=== PATIENT | male | born 1950 | race Caucasian/White ===

== ENCOUNTER 2017-06-07 11:05 | Inpatient (IN) | payer MEDICARE, MEDICAID ==
--- NOTE | 2017-06-07 11:33 | ED Physician Chart ---
ED Chief Complaint/HPI - Patient Information Date Seen:: 06/07/17 Time Seen:: 11:20 Chief Complaint:: Poor Oral Intake History of Present Illness:: onset x 2 days of poor oral intake and failure to thrive; no report of LOC, ALOC , AMS, trauma, H/As, S/T, neck pain, C/P, SOB, Abd. Pain, A/N/V/D/C, fever, chills, or urinary s/s Allergies:: Allergies Allergy/AdvReac Type Severity Reaction Status Date / Time No Known Allergies Allergy Verified 06/07/17 11:16 Vitals:: Vital Signs - 8 hr 06/07/17 11:21 Temp 98.8 F HR 98 RR 18 BP 120/51 O2 Sat % 96 Historian:: Patient, Family Member Review:: Nurse's Note Reviewed ED Review of Systems - Review of Systems General/Constitutional: No fever, No chills, No weight loss, No weakness, No diaphoresis, No edema, No loss of appetite Skin: No skin lesions, No rash, No bruising Head: No headache, No light-headedness Eyes: No loss of vision, No pain, No diplopia ENT: No earache, No nasal drainage, No sore throat, No tinnitus Neck: No neck pain, No swelling, No thyromegaly, No stiffness, No mass noted Cardio Vascular: No chest pain, No palpitations, No PND, No orthopnea, No edema Pulmonary: No SOB, No cough, No sputum, No wheezing GI: No nausea, No vomiting, No diarrhea, No pain, No melena, No hematochezia, No constipation, No hematemesis G/U: No dysuria, No frequency, No hematuria, No nacturia Musculoskeletal: No bone or joint pain, No back pain, No muscle pain Endocrine: No polyuria, No polydipsia Psychiatric: No prior psych history, No depression, No anxiety, No suicidal ideation, No homicidal ideation, No auditory hallucination, No visual hallucination Hematopoietic: No bruising, No lymphadenopathy Allergic/Immuno: No urticaria, No angioedema Neurological: No syncope, No focal symptoms, No weakness, No paresthesia, No headache, No seizure, No dizziness, No confusion, No vertigo ED Past Medical History - Past Medical History Obtainable: Yes Past Medical History: HTN Family History: HTN Social History: Non Smoker, No Alcohol, No Drug Use, , Care Facility Surgical History: None Psychiatricy History: None Medication: Reviewed Family Medical History - Family Member Mother History Unknown: Yes ED Physical Exam - Physical Examination General/Constitutional: Awake, Well-developed, well-nourished, Alert, No distress, GCS 15, Non-toxic appearing, Ambulatory Head: Atraumatic Eyes: Lids, conjuctiva normal, PERRL, EOMI Skin: Nl inspection, No rash, No skin lesions, No ecchymosis, Well hydrated, No lymphadenopathy ENMT: External ears, nose nl, TM canals nl, Nasal exam nl, Lips, teeth, gums nl , Oropharynx nl, Tonsils nl Neck: Nontender, Full ROM w/o pain, No JVD, No nuchal rigidity, No bruit, No mass, No stridor Respiratory: Nl effort/Exclusion, Clear to Auscultation, No Wheeze/Rhonchi/Rales Cardio Vascular: RRR, No murmur, gallop, rubs, NL S1 S2, Carotid/Femoral/Distal pulses equal bilaterally GI: No tenderness/rebounding/guarding, No organomegaly, No hernia, Normal BS's, Nondistended, No mass/bruits, No McBurney tenderness : No CVA tenderness Extremities: No tenderness or effusion, Full ROM, normal strength in all extremities, No edema, Normal digits & nails Neuro/Psych: Alert/oriented, DTR's symmetric, Normal sensory exam, Normal motor strength, Judgement/insight normal, Mood normal, Normal gait, No focal deficits Misc: Normal back, No paraspinal tenderness ED Labs/Radiology/EKG Results - Lab Results Comments:: unremarkable - Radiology Results Comments:: NAD - EKG Interpretations EKG Time:: 12:00 Rate & Rhythm: 82; NSR Comments:: non-specific st-t changes ED Septic Shock - . Is Septic Shock (SBP<90, OR Lactate>4 mmol\L) present?: No - <6hrs of presentation: Vital Signs: Vital Signs - 8 hr 06/07/17 11:21 Temp 98.8 F HR 98 RR 18 BP 120/51 O2 Sat % 96 ED Reassessment (Disposition) - Reassessment Reassessment Condition:: Improved - Diagnosis Diagnosis:: Dehydration; Poor Oral Intake; Failure to Thrive - Aftercare/Follow up Instructions Aftercare/Follow-Up Instructions:: Counseled pt regarding lab results/diagnosis & need follow up, Counseled pt & family regarding lab results/diagnosis & need follow up - Patient Disposition Discharge/Transfer:: Acute Care w/in this hosp Accepting Physician:: Dr. Walters Time Called:: 1300 Time Responded:: 13:00 Admitted to:: Med/Surg Spoke to:: Dr. Walters Admitting Medical Physician:: Dr. Walters Condition at Disposition:: Stable, Improved
[2017-06-07 11:54] LABS: % EOSINOPHILS 0.7 % (0.0-5.0); % LYMPHOCYTES 5.4 % (20.0-50.0); % MONOCYTES 5.6 % (2.0-10.0); % NEUTROPHILS 88.3 % (40.0-80.0); HEMATOCRIT 39.9 % (41.0-60); HEMOGLOBIN 13.5 gm/dL (12-16); LYMPHOCYTE ABSOLUTE 0.3 Th/cmm (1.5-3.0); MEAN CORPUSCULAR HEMOGLOBIN 30.7 pg (27.0-31.0); MEAN CORPUSCULAR HGB CONC 33.8 pg (28.0-36.0); MEAN PLATELET VOLUME 8.2 fl; MONOCYTE ABSOLUTE 0.3 Th/cmm (0.3-1.0); NEUTROPHILE ABSOLUTE 4.1 Th/cmm (1.8-8.0); PLATELET COUNT 208 Th/cmm (150-400); RED BLOOD COUNT 4.38 Mil/cmm (3.80-5.80); RED CELL DISTRIBUTION WIDTH 12.4 % (11.5-20.0); WHITE BLOOD COUNT 4.7 Th/cmm (4.8-10.8)
[2017-06-07 12:10] LABS: PROTHROMBIN TIME (TEST) 10.4 SECONDS (9.5-11.5)
[2017-06-07 12:14] LABS: ALB/GLOB RATIO 1.6 (1.0-1.8); ALBUMIN 4.1 gm/dL (4.2-5.5); ALKALINE PHOSPHATASE 63 U/L (34-104); ANION GAP 11.1 (7.0-16.0); BILIRUBIN,TOTAL 0.4 mg/dL (0.3-1.0); BUN - UREA NITROGEN 24 mg/dL (7-25); CALCIUM SERUM 9.3 mg/dL (8.6-10.3); CARBON DIOXIDE 27.6 mEq/L (21.0-31.0); CHLORIDE 99 mEq/L (98-107); CREATININE KINASE 209 U/L (30-223); GFR AFRICAN-AMERICAN > 60.0 ml/min (>90); GFR NON AFRICAN-AMERICAN > 60.0 ml/min; GLUCOSE 168 mg/dL (70-105); POTASSIUM SERUM 3.7 mEq/L (3.5-5.1); SGOT 17 U/L (13-39); SGPT/ALT 3 U/L (7-52); SODIUM SERUM 134 mEq/L (136-145); TOTAL PROTEIN,SERUM 6.7 gm/dL (6.0-8.3)
[2017-06-07 12:17] LABS: TROP I < 0.01 ng/mL (0.01-0.05)
--- NOTE | 2017-06-07 12:33 | Diagnostic Imaging Report ---
CHEST X-RAY: AP view INDICATION: pain COMPARISON: None FINDINGS: Chronic lung changes are noted. There is no focal consolidation or pleural effusions the heart size at the upper limits of normal. Atherosclerosis is noted. There is a 3 mm calcified granuloma of the left upper lung zone. Degenerative changes of the spine are noted. IMPRESSION: Chronic lung changes with no focal consolidation identified. 3 mm calcified granuloma of the left upper lung zone. Atherosclerotic vascular disease.
[2017-06-07 14:23] LABS: URINE MICROSCOPIC INDICATED? YES; URINE SOURCE MIDSTREAM
[2017-06-07 14:31] LABS: URINE BILIRUBIN NEGATIVE (NEGATIVE); URINE BLOOD NEGATIVE (NEGATIVE); URINE GLUCOSE (UA) NEGATIVE (NEGATIVE); URINE KETONE NEGATIVE (NEGATIVE); URINE LEUKOCYTE ESTERASE NEGATIVE (NEGATIVE); URINE NITRATE NEGATIVE (NEGATIVE); URINE PROTEIN NEGATIVE (NEGATIVE)
[2017-06-07 14:34] LABS: URINE CLARITY CLEAR (CLEAR); URINE COLOR YELLOW
[2017-06-07 14:51] LABS: URINE BACTERIA NONE SEEN /hpf (NONE SEEN); URINE EPITHELIAL CELLS NONE SEEN /lpf (FEW); URINE RBC NONE SEEN /hpf (0-5); URINE WBC NONE SEEN /hpf (0-5)
[2017-06-07] MEDS ORDERED: Pneumococcal Vaccine 0.5 mL Vial IM ONE (16:55)
--- NOTE | 2017-06-07 19:06 | History & Physical ---
ADMIT DATE: 06/07/2017 The patient has a history of Parkinson disease, history of benign enlargement of the prostate and history of coronary artery disease. [facility]# [id number]
--- NOTE | 2017-06-07 19:15 | History & Physical ---
ADMIT DATE: 06/07/2017 This patient is an elderly patient, 66-year-old has been having low appetite, not eating, losing weight and very dehydrated in the last several days, came to the ER and was worked up and found to have acute dehydration, acute prerenal azotemia and complaining of shortness of breath, abdominal pain and neck pain and the patient was admitted. PAST MEDICAL HISTORY: History of hypertension. No history of alcohol. REVIEW OF SYSTEMS: Except not eating, everything else was negative. PHYSICAL EXAMINATION: GENERAL: The patient is awake, alert, looks dehydrated. HEAD: Normal. ENT: Normal. NECK: Supple, nontender. LUNGS: Clear. CARDIOVASCULAR SYSTEM: S1, S2 heard. ABDOMEN: Soft. Bowel sounds are heard. LABORATORY DATA: Showed some marked dehydration, high BUN, indicating acute kidney injury, acute renal failure, dehydration, poor oral intake, failure to thrive, history of hypertension. The patient is going to be admitted. I will go ahead and hydrate him and also I will work him up for sepsis and I will follow up, give him physical therapy and evaluate for rehabilitation therapy in detention. JOB# [id number]
[2017-06-07] MEDS: D5-0.45NS 1,000 ML IV SCH (21:30)
[2017-06-08] MEDS: Aspirin 81mg Chewable Tab PO SCH (08:22)
[2017-06-08] MEDS: D5-0.45NS 1,000 ML IV SCH (10:47)
--- NOTE | 2017-06-08 13:30 | Internal Medicine Prog Note ---
Internal Medicine Subjective - Subjective Service Date: 06/08/17 Patient seen and examined:: with staff Patient is:: awake Per staff patient has:: tolerating meds Internal Medicine Objective - Results Result Diagrams: 06/07/17 11:40 06/07/17 11:40 Recent Labs: Laboratory Last Values WBC 4.7 Th/cmm (4.8-10.8) L 06/07/17 11:40 RBC 4.38 Mil/cmm (3.80-5.80) 06/07/17 11:40 Hgb 13.5 gm/dL (12-16) 06/07/17 11:40 Hct 39.9 % (41.0-60) L 06/07/17 11:40 MCV 91.0 fl (80-99) 06/07/17 11:40 MCH 30.7 pg (27.0-31.0) 06/07/17 11:40 MCHC Differential 33.8 pg (28.0-36.0) 06/07/17 11:40 RDW 12.4 % (11.5-20.0) 06/07/17 11:40 Plt Count 208 Th/cmm (150-400) 06/07/17 11:40 MPV 8.2 fl 06/07/17 11:40 Neutrophils % 88.3 % (40.0-80.0) H 06/07/17 11:40 Lymphocytes % 5.4 % (20.0-50.0) L 06/07/17 11:40 Monocytes % 5.6 % (2.0-10.0) 06/07/17 11:40 Eosinophils % 0.7 % (0.0-5.0) 06/07/17 11:40 Basophils % 0.0 % (0.0-2.0) 06/07/17 11:40 PT 10.4 SECONDS (9.5-11.5) 06/07/17 11:40 INR 1.00 (0.5-1.4) 06/07/17 11:40 PTT (Actin FS) 21.0 SECONDS (26.0-38.0) L 06/07/17 11:40 Sodium 134 mEq/L (136-145) L 06/07/17 11:40 Potassium 3.7 mEq/L (3.5-5.1) 06/07/17 11:40 Chloride 99 mEq/L (98-107) 06/07/17 11:40 Carbon Dioxide 27.6 mEq/L (21.0-31.0) 06/07/17 11:40 Anion Gap 11.1 (7.0-16.0) 06/07/17 11:40 BUN 24 mg/dL (7-25) 06/07/17 11:40 Creatinine 1.0 mg/dL (0.7-1.3) 06/07/17 11:40 Est GFR ( Amer) > 60.0 ml/min (>90) 06/07/17 11:40 Est GFR (Non-Af Amer) > 60.0 ml/min 06/07/17 11:40 BUN/Creatinine Ratio 24.0 06/07/17 11:40 Glucose 168 mg/dL (70-105) H 06/07/17 11:40 POC Glucose 101 MG/DL (70 - 105) 06/07/17 16:06 Whole Bld Lactic Acid 1.68 mmol/L (0.60-1.99) 06/07/17 11:40 Calcium 9.3 mg/dL (8.6-10.3) 06/07/17 11:40 Total Bilirubin 0.4 mg/dL (0.3-1.0) 06/07/17 11:40 AST 17 U/L (13-39) 06/07/17 11:40 ALT 3 U/L (7-52) L 06/07/17 11:40 Alkaline Phosphatase 63 U/L (34-104) 06/07/17 11:40 Creatine Kinase 209 U/L (30-223) 06/07/17 11:40 Troponin I < 0.01 ng/mL (0.01-0.05) L 06/07/17 11:40 Total Protein 6.7 gm/dL (6.0-8.3) 06/07/17 11:40 Albumin 4.1 gm/dL (4.2-5.5) L 06/07/17 11:40 Globulin 2.6 gm/dL 06/07/17 11:40 Albumin/Globulin Ratio 1.6 (1.0-1.8) 06/07/17 11:40 Urine Source MIDSTREAM 06/07/17 14:15 Urine Color YELLOW 06/07/17 14:15 Urine Clarity CLEAR (CLEAR) 06/07/17 14:15 Urine pH 6.0 (4.6 - 8.0) 06/07/17 14:15 Ur Specific [place] 1.015 (1.005-1.030) 06/07/17 14:15 Urine Protein NEGATIVE mg/dL (NEGATIVE) 06/07/17 14:15 Urine Glucose (UA) NEGATIVE mg/dL (NEGATIVE) 06/07/17 14:15 Urine Ketones NEGATIVE mg/dL (NEGATIVE) 06/07/17 14:15 Urine Blood NEGATIVE (NEGATIVE) 06/07/17 14:15 Urine Nitrate NEGATIVE (NEGATIVE) 06/07/17 14:15 Urine Bilirubin NEGATIVE (NEGATIVE) 06/07/17 14:15 Urine Urobilinogen 1.0 E.U./dL (0.2 - 1.0) 06/07/17 14:15 Ur Leukocyte Esterase NEGATIVE (NEGATIVE) 06/07/17 14:15 Urine RBC NONE SEEN /hpf (0-5) 06/07/17 14:15 Urine WBC NONE SEEN /hpf (0-5) 06/07/17 14:15 Ur Epithelial Cells NONE SEEN /lpf (FEW) 06/07/17 14:15 Urine Bacteria NONE SEEN /hpf (NONE SEEN) 06/07/17 14:15 - Physical Exam Vitals and I&O: Vital Signs Temp 97.6 F 06/08/17 11:58 Pulse 82 06/08/17 11:58 Resp 18 06/08/17 11:58 BP 107/56 06/08/17 11:58 Pulse Ox 98 06/08/17 11:58 Intake & Output 06/07/17 06/08/17 06/08/17 18:59 06:59 18:59 Intake Total 996.25 Balance 996.25 Weight (lbs) 150 lb Intake: Intake, IV Amount 996.25 D5-0.45NS 1,000 ml @ 75 996.25 mls/hr IV .[id number] [facility] Rx #:[id number] Other: Weight Source Estimated Active Medications: Current Medications Amantadine HCl (Symmetrel) 100 mg PO DAILY [facility] Stop: 08/07/17 08:59 Last Admin: 06/08/17 08:21 Dose: 100 mg Aspirin (Aspirin Chewable) 81 mg PO DAILY [facility] Stop: 08/07/17 08:59 Last Admin: 06/08/17 08:22 Dose: 81 mg Bicalutamide (Casodex) 50 mg PO DAILY [facility] PRN Reason: Protocol Stop: 08/07/17 08:59 Last Admin: 06/08/17 08:51 Dose: 50 mg Carbidopa/Levodopa (Sinemet 25 Mg-250 Mg) 1 tab PO BID [facility] Stop: 08/07/17 08:59 Last Admin: 06/08/17 08:21 Dose: 1 tab Dextrose/Sodium Chloride (D5-0.45ns) 1,000 mls @ 75 mls/hr IV .[id number] [facility] Stop: 08/06/17 18:29 Last Admin: 06/08/17 10:47 Dose: 75 mls/hr Lisinopril (Zestril) 2.5 mg PO DAILY [facility] Stop: 08/07/17 08:59 Last Admin: 06/08/17 08:21 Dose: 2.5 mg Metformin HCl (Glucophage) 500 mg PO DAILY [facility] Stop: 08/07/17 08:59 Last Admin: 06/08/17 08:21 Dose: 500 mg Tamsulosin HCl (Flomax) 0.4 mg PO DAILY [facility] Stop: 08/07/17 08:59 Last Admin: 06/08/17 08:21 Dose: 0.4 mg General: alert HEENT: NC/AT, PERRLA Neck: Supple Lungs: CTAB Cardiovascular: RRR, Normal S1 Abdomen: soft, non-tender, non-distended, positive bowel sound Neurological: alert Internal Medicine Assmt/Plan - Assessment Assessment: Acute Dehydration bph - Plan Plan: ivf for hydration aspiration precautions continue current plan of care
[2017-06-09] MEDS: D5-0.45NS 1,000 ML IV SCH ×2 (00:51→18:36)
[2017-06-09 06:51] LABS: % BASOPHILS 0.1 % (0.0-2.0); % EOSINOPHILS 0.6 % (0.0-5.0); % LYMPHOCYTES 11.2 % (20.0-50.0); % MONOCYTES 3.6 % (2.0-10.0); % NEUTROPHILS 84.5 % (40.0-80.0); HEMOGLOBIN 14.7 gm/dL (12-16); LYMPHOCYTE ABSOLUTE 0.8 Th/cmm (1.5-3.0); MEAN CELL VOLUME 90.8 fl (80-99); MEAN CORPUSCULAR HGB CONC 34.1 pg (28.0-36.0); MEAN PLATELET VOLUME 7.9 fl; MONOCYTE ABSOLUTE 0.2 Th/cmm (0.3-1.0); NEUTROPHILE ABSOLUTE 5.9 Th/cmm (1.8-8.0); PLATELET COUNT 209 Th/cmm (150-400); RED BLOOD COUNT 4.73 Mil/cmm (3.80-5.80); RED CELL DISTRIBUTION WIDTH 12.4 % (11.5-20.0); WHITE BLOOD COUNT 6.9 Th/cmm (4.8-10.8)
[2017-06-09 07:10] LABS: ANION GAP 10.1 (7.0-16.0); BUN - UREA NITROGEN 13 mg/dL (7-25); CALCIUM SERUM 9.2 mg/dL (8.6-10.3); CARBON DIOXIDE 30.9 mEq/L (21.0-31.0); CHLORIDE 99 mEq/L (98-107); CREATININE - SERUM 0.9 mg/dL (0.7-1.3); GFR AFRICAN-AMERICAN > 60.0 ml/min (>90); GFR NON AFRICAN-AMERICAN > 60.0 ml/min; GLUCOSE 112 mg/dL (70-105); SODIUM SERUM 136 mEq/L (136-145)
[2017-06-09] MEDS: Aspirin 81mg Chewable Tab PO SCH (09:33)
--- NOTE | 2017-06-09 11:28 | General Progress Note ---
Subjective - Review of Systems Events since last encounter: patient in no distress awake alert Objective - Results Result Diagrams: 06/09/17 06:25 06/09/17 06:25 Recent Labs: Laboratory Last Values WBC 6.9 Th/cmm (4.8-10.8) 06/09/17 06:25 RBC 4.73 Mil/cmm (3.80-5.80) 06/09/17 06:25 Hgb 14.7 gm/dL (12-16) 06/09/17 06:25 Hct 43.0 % (41.0-60) 06/09/17 06:25 MCV 90.8 fl (80-99) 06/09/17 06:25 MCH 31.0 pg (27.0-31.0) 06/09/17 06:25 MCHC Differential 34.1 pg (28.0-36.0) 06/09/17 06:25 RDW 12.4 % (11.5-20.0) 06/09/17 06:25 Plt Count 209 Th/cmm (150-400) 06/09/17 06:25 MPV 7.9 fl 06/09/17 06:25 Neutrophils % 84.5 % (40.0-80.0) H 06/09/17 06:25 Lymphocytes % 11.2 % (20.0-50.0) L 06/09/17 06:25 Monocytes % 3.6 % (2.0-10.0) 06/09/17 06:25 Eosinophils % 0.6 % (0.0-5.0) 06/09/17 06:25 Basophils % 0.1 % (0.0-2.0) 06/09/17 06:25 PT 10.4 SECONDS (9.5-11.5) 06/07/17 11:40 INR 1.00 (0.5-1.4) 06/07/17 11:40 PTT (Actin FS) 21.0 SECONDS (26.0-38.0) L 06/07/17 11:40 Sodium 136 mEq/L (136-145) 06/09/17 06:25 Potassium 4.0 mEq/L (3.5-5.1) 06/09/17 06:25 Chloride 99 mEq/L (98-107) 06/09/17 06:25 Carbon Dioxide 30.9 mEq/L (21.0-31.0) 06/09/17 06:25 Anion Gap 10.1 (7.0-16.0) 06/09/17 06:25 BUN 13 mg/dL (7-25) 06/09/17 06:25 Creatinine 0.9 mg/dL (0.7-1.3) 06/09/17 06:25 Est GFR ( Amer) > 60.0 ml/min (>90) 06/09/17 06:25 Est GFR (Non-Af Amer) > 60.0 ml/min 06/09/17 06:25 BUN/Creatinine Ratio 14.4 06/09/17 06:25 Glucose 112 mg/dL (70-105) H 06/09/17 06:25 POC Glucose 101 MG/DL (70 - 105) 06/07/17 16:06 Whole Bld Lactic Acid 1.68 mmol/L (0.60-1.99) 06/07/17 11:40 Calcium 9.2 mg/dL (8.6-10.3) 06/09/17 06:25 Total Bilirubin 0.4 mg/dL (0.3-1.0) 06/07/17 11:40 AST 17 U/L (13-39) 06/07/17 11:40 ALT 3 U/L (7-52) L 06/07/17 11:40 Alkaline Phosphatase 63 U/L (34-104) 06/07/17 11:40 Creatine Kinase 209 U/L (30-223) 06/07/17 11:40 Troponin I < 0.01 ng/mL (0.01-0.05) L 06/07/17 11:40 Total Protein 6.7 gm/dL (6.0-8.3) 06/07/17 11:40 Albumin 4.1 gm/dL (4.2-5.5) L 06/07/17 11:40 Globulin 2.6 gm/dL 06/07/17 11:40 Albumin/Globulin Ratio 1.6 (1.0-1.8) 06/07/17 11:40 Urine Source MIDSTREAM 06/07/17 14:15 Urine Color YELLOW 06/07/17 14:15 Urine Clarity CLEAR (CLEAR) 06/07/17 14:15 Urine pH 6.0 (4.6 - 8.0) 06/07/17 14:15 Ur Specific [place] 1.015 (1.005-1.030) 06/07/17 14:15 Urine Protein NEGATIVE mg/dL (NEGATIVE) 06/07/17 14:15 Urine Glucose (UA) NEGATIVE mg/dL (NEGATIVE) 06/07/17 14:15 Urine Ketones NEGATIVE mg/dL (NEGATIVE) 06/07/17 14:15 Urine Blood NEGATIVE (NEGATIVE) 06/07/17 14:15 Urine Nitrate NEGATIVE (NEGATIVE) 06/07/17 14:15 Urine Bilirubin NEGATIVE (NEGATIVE) 06/07/17 14:15 Urine Urobilinogen 1.0 E.U./dL (0.2 - 1.0) 06/07/17 14:15 Ur Leukocyte Esterase NEGATIVE (NEGATIVE) 06/07/17 14:15 Urine RBC NONE SEEN /hpf (0-5) 06/07/17 14:15 Urine WBC NONE SEEN /hpf (0-5) 06/07/17 14:15 Ur Epithelial Cells NONE SEEN /lpf (FEW) 06/07/17 14:15 Urine Bacteria NONE SEEN /hpf (NONE SEEN) 06/07/17 14:15 - Physical Exam Vitals and I&O: Vital Signs Temp 98.5 F 06/09/17 04:00 Pulse 106 06/09/17 09:33 Resp 18 06/09/17 08:23 BP 141/60 06/09/17 09:33 Pulse Ox 96 06/09/17 04:00 Intake & Output 06/08/17 06/09/17 06/09/17 18:59 06:59 18:59 Intake Total 1296.25 1025 Balance 1296.25 1025 Weight (lbs) 68.039 kg 68.039 kg Intake: Intake, IV Amount 996.25 1000 D5-0.45NS 1,000 ml @ 75 996.25 1000 mls/hr IV .[id number] [facility] Rx #:[id number] Oral 300 25 Other: # Voids 3 400 # Bowel Movements 1 Weight Source Bedscale Bedscale Active Medications: Current Medications Amantadine HCl (Symmetrel) 100 mg PO DAILY [facility] Stop: 08/07/17 08:59 Last Admin: 06/09/17 09:37 Dose: 100 mg Aspirin (Aspirin Chewable) 81 mg PO DAILY [facility] Stop: 08/07/17 08:59 Last Admin: 06/09/17 09:33 Dose: 81 mg Bicalutamide (Casodex) 50 mg PO DAILY [facility] PRN Reason: Protocol Stop: 08/07/17 08:59 Last Admin: 06/09/17 11:21 Dose: 50 mg Carbidopa/Levodopa (Sinemet 25 Mg-250 Mg) 1 tab PO BID [facility] Stop: 08/07/17 08:59 Last Admin: 06/09/17 09:33 Dose: 1 tab Dextrose/Sodium Chloride (D5-0.45ns) 1,000 mls @ 75 mls/hr IV .[id number] [facility] Stop: 08/06/17 18:29 Last Admin: 06/09/17 00:51 Dose: 75 mls/hr Lisinopril (Zestril) 2.5 mg PO DAILY [facility] Stop: 08/07/17 08:59 Last Admin: 06/09/17 09:33 Dose: 2.5 mg Metformin HCl (Glucophage) 500 mg PO DAILY [facility] Stop: 08/07/17 08:59 Last Admin: 06/09/17 09:37 Dose: 500 mg Tamsulosin HCl (Flomax) 0.4 mg PO DAILY [facility] Stop: 08/07/17 08:59 Last Admin: 06/09/17 09:35 Dose: 0.4 mg General: No acute distress Neck: Supple Cardiovascular: Regular rate, Normal S1, Normal S2 Abdomen: Bowel sounds Assessment/Plan - Problem List Patient Problems: All Active Problems BPH (benign prostatic hyperplasia) (Acute) N40.0 Dehydration, severe (Acute) E86.0 HX OF FALLS WITH POOR ORAL INTAKE (Acute) - Plan Plan: cpm Nutritional Asmnt/Malnutr-PDOC - Dietary Evaluation Malnutrition Findings (Please click <Entered> for more info): Nutritional Asmnt/Malnutrition Start: 06/08/17 15: 27 Text: Status: Complete Freq: Document 06/08/17 15:27 COLT (Rec: 06/08/17 15:47 COLT [id number]) Nutritional Asmnt/Malnutrition Patient General Information Nutritional Screening High Risk Diagnosis FTT, dehydration Pertinent Medical Hx/Surgical Hx HTN, DM, parkinson disease Subjective Information pt seen sleeping in bed at time of visit. Pt is Occitan speaking noted. No PO intake record at this time. Current Diet Order/ Nutrition Support [facility] soft chopped Pertinent Medications D5-0.45ns, glucophage Pertinent Labs 06/07 Na 134, glucose 168, POC 101 Nutritional Hx/Data Height 1.78 m Height (Calculated Centimeters) 177.8 Current Weight (lbs) 68.039 kg Weight (Calculated Kilograms) 68.0 Weight (Calculated Grams) 63819.9 [place] Body Weight 166 Body Mass Index (BMI) 21.5 Weight Status Approriate GI Symptoms GI Symptoms None Last BM no record Difficult in: None Skin Integrity/Comment: redness/scratch of left knee; redness/sotomayor arouind neck Estimated Nutritional Goals BEE in Kcals: Using Current wt Calories/Kcals/Kg 25-30 Kcals Calculated 1750-3685 Protein: Using Current wt Protein g/k-1.2 Protein Calculated 68-82 Fluid: ml 1700-2040ml (1ml/ckal) Nutritional Problem 1. Problem Problem altered nutrition related lab values Etiology hx of DM Signs/Symptoms: glucose 168 Intervention/Recommendation Comments 1. Continue monitor glucose and accucheck. If blood sugar continue high, consider adding CCHO-60gm diet. 2. Monitor PO intake, wt, labs and skin integrity 3. F/U as high risk in 2-3 days, 06/10-06/11 Expected Outcomes/Goals Expected Outcomes/Goals 1. PO intake to meet at least 75% of nutritional needs. 2. Wt stability, skin to remain intact, labs to approach WNL.
[2017-06-10] MEDS: Aspirin 81mg Chewable Tab PO SCH (09:17)
--- NOTE | 2017-06-10 11:46 | General Progress Note ---
Subjective - Review of Systems Events since last encounter: in no distress comfortable Objective - Results Result Diagrams: 06/09/17 06:25 06/09/17 06:25 Recent Labs: Laboratory Last Values WBC 6.9 Th/cmm (4.8-10.8) 06/09/17 06:25 RBC 4.73 Mil/cmm (3.80-5.80) 06/09/17 06:25 Hgb 14.7 gm/dL (12-16) 06/09/17 06:25 Hct 43.0 % (41.0-60) 06/09/17 06:25 MCV 90.8 fl (80-99) 06/09/17 06:25 MCH 31.0 pg (27.0-31.0) 06/09/17 06:25 MCHC Differential 34.1 pg (28.0-36.0) 06/09/17 06:25 RDW 12.4 % (11.5-20.0) 06/09/17 06:25 Plt Count 209 Th/cmm (150-400) 06/09/17 06:25 MPV 7.9 fl 06/09/17 06:25 Neutrophils % 84.5 % (40.0-80.0) H 06/09/17 06:25 Lymphocytes % 11.2 % (20.0-50.0) L 06/09/17 06:25 Monocytes % 3.6 % (2.0-10.0) 06/09/17 06:25 Eosinophils % 0.6 % (0.0-5.0) 06/09/17 06:25 Basophils % 0.1 % (0.0-2.0) 06/09/17 06:25 PT 10.4 SECONDS (9.5-11.5) 06/07/17 11:40 INR 1.00 (0.5-1.4) 06/07/17 11:40 PTT (Actin FS) 21.0 SECONDS (26.0-38.0) L 06/07/17 11:40 Sodium 136 mEq/L (136-145) 06/09/17 06:25 Potassium 4.0 mEq/L (3.5-5.1) 06/09/17 06:25 Chloride 99 mEq/L (98-107) 06/09/17 06:25 Carbon Dioxide 30.9 mEq/L (21.0-31.0) 06/09/17 06:25 Anion Gap 10.1 (7.0-16.0) 06/09/17 06:25 BUN 13 mg/dL (7-25) 06/09/17 06:25 Creatinine 0.9 mg/dL (0.7-1.3) 06/09/17 06:25 Est GFR ( Amer) > 60.0 ml/min (>90) 06/09/17 06:25 Est GFR (Non-Af Amer) > 60.0 ml/min 06/09/17 06:25 BUN/Creatinine Ratio 14.4 06/09/17 06:25 Glucose 112 mg/dL (70-105) H 06/09/17 06:25 POC Glucose 101 MG/DL (70 - 105) 06/07/17 16:06 Whole Bld Lactic Acid 1.68 mmol/L (0.60-1.99) 06/07/17 11:40 Calcium 9.2 mg/dL (8.6-10.3) 06/09/17 06:25 Total Bilirubin 0.4 mg/dL (0.3-1.0) 06/07/17 11:40 AST 17 U/L (13-39) 06/07/17 11:40 ALT 3 U/L (7-52) L 06/07/17 11:40 Alkaline Phosphatase 63 U/L (34-104) 06/07/17 11:40 Creatine Kinase 209 U/L (30-223) 06/07/17 11:40 Troponin I < 0.01 ng/mL (0.01-0.05) L 06/07/17 11:40 Total Protein 6.7 gm/dL (6.0-8.3) 06/07/17 11:40 Albumin 4.1 gm/dL (4.2-5.5) L 06/07/17 11:40 Globulin 2.6 gm/dL 06/07/17 11:40 Albumin/Globulin Ratio 1.6 (1.0-1.8) 06/07/17 11:40 Urine Source MIDSTREAM 06/07/17 14:15 Urine Color YELLOW 06/07/17 14:15 Urine Clarity CLEAR (CLEAR) 06/07/17 14:15 Urine pH 6.0 (4.6 - 8.0) 06/07/17 14:15 Ur Specific [place] 1.015 (1.005-1.030) 06/07/17 14:15 Urine Protein NEGATIVE mg/dL (NEGATIVE) 06/07/17 14:15 Urine Glucose (UA) NEGATIVE mg/dL (NEGATIVE) 06/07/17 14:15 Urine Ketones NEGATIVE mg/dL (NEGATIVE) 06/07/17 14:15 Urine Blood NEGATIVE (NEGATIVE) 06/07/17 14:15 Urine Nitrate NEGATIVE (NEGATIVE) 06/07/17 14:15 Urine Bilirubin NEGATIVE (NEGATIVE) 06/07/17 14:15 Urine Urobilinogen 1.0 E.U./dL (0.2 - 1.0) 06/07/17 14:15 Ur Leukocyte Esterase NEGATIVE (NEGATIVE) 06/07/17 14:15 Urine RBC NONE SEEN /hpf (0-5) 06/07/17 14:15 Urine WBC NONE SEEN /hpf (0-5) 06/07/17 14:15 Ur Epithelial Cells NONE SEEN /lpf (FEW) 06/07/17 14:15 Urine Bacteria NONE SEEN /hpf (NONE SEEN) 06/07/17 14:15 - Physical Exam Vitals and I&O: Vital Signs Temp 98.9 F 06/10/17 10:37 Pulse 85 06/10/17 10:37 Resp 18 06/10/17 10:37 BP 133/69 06/10/17 10:37 Pulse Ox 96 06/10/17 10:37 Intake & Output 06/09/17 06/10/17 06/10/17 18:59 06:59 18:59 Intake Total 1800 50 Balance 1800 50 Weight (lbs) 68.039 kg 68.039 kg Intake: Intake, IV Amount 1000 D5-0.45NS 1,000 ml @ 75 1000 mls/hr IV .[id number] [facility] Rx #:[id number] Oral 800 50 Other: # Voids 1 3 # Bowel Movements 0 0 Weight Source Bedscale Bedscale Active Medications: Current Medications Amantadine HCl (Symmetrel) 100 mg PO DAILY [facility] Stop: 08/07/17 08:59 Last Admin: 06/10/17 09:17 Dose: 100 mg Aspirin (Aspirin Chewable) 81 mg PO DAILY [facility] Stop: 08/07/17 08:59 Last Admin: 06/10/17 09:17 Dose: 81 mg Bicalutamide (Casodex) 50 mg PO DAILY [facility] PRN Reason: Protocol Stop: 08/07/17 08:59 Last Admin: 06/09/17 11:21 Dose: 50 mg Carbidopa/Levodopa (Sinemet 25 Mg-250 Mg) 1 tab PO BID [facility] Stop: 08/07/17 08:59 Last Admin: 06/10/17 09:16 Dose: 1 tab Dextrose/Sodium Chloride (D5-0.45ns) 1,000 mls @ 75 mls/hr IV .[id number] [facility] Stop: 08/06/17 18:29 Last Admin: 06/09/17 18:36 Dose: 75 mls/hr Lisinopril (Zestril) 2.5 mg PO DAILY [facility] Stop: 08/07/17 08:59 Last Admin: 06/10/17 09:16 Dose: 2.5 mg Metformin HCl (Glucophage) 500 mg PO DAILY [facility] Stop: 08/07/17 08:59 Last Admin: 06/10/17 09:17 Dose: 500 mg Tamsulosin HCl (Flomax) 0.4 mg PO DAILY [facility] Stop: 08/07/17 08:59 Last Admin: 06/10/17 09:16 Dose: 0.4 mg General: No acute distress Neck: Supple Cardiovascular: Regular rate, Normal S1, Normal S2 Abdomen: Bowel sounds Assessment/Plan - Problem List Patient Problems: All Active Problems BPH (benign prostatic hyperplasia) (Acute) N40.0 Dehydration, severe (Acute) E86.0 HX OF FALLS WITH POOR ORAL INTAKE (Acute) - Plan Plan: [facility] Nutritional Asmnt/Malnutr-PDOC - Dietary Evaluation Malnutrition Findings (Please click <Entered> for more info): Nutritional Asmnt/Malnutrition Start: 06/08/17 15: 27 Text: Status: Complete Freq: Document 06/08/17 15:27 COLT (Rec: 06/08/17 15:47 COLT [email or web address]) Nutritional Asmnt/Malnutrition Patient General Information Nutritional Screening High Risk Diagnosis FTT, dehydration Pertinent Medical Hx/Surgical Hx HTN, DM, parkinson disease Subjective Information pt seen sleeping in bed at time of visit. Pt is [place] speaking noted. No PO intake record at this time. Current Diet Order/ Nutrition Support mech soft chopped Pertinent Medications D5-0.45ns, glucophage Pertinent Labs 06/07 Na 134, glucose 168, POC 101 Nutritional Hx/Data Height 1.78 m Height (Calculated Centimeters) 177.8 Current Weight (lbs) 68.039 kg Weight (Calculated Kilograms) 68.0 Weight (Calculated Grams) 74591.9 [place] Body Weight 166 Body Mass Index (BMI) 21.5 Weight Status Approriate GI Symptoms GI Symptoms None Last BM no record Difficult in: None Skin Integrity/Comment: redness/scratch of left knee; redness/sotomayor arouind neck Estimated Nutritional Goals BEE in Kcals: Using Current wt Calories/Kcals/Kg 25-30 Kcals Calculated 3196-5375 Protein: Using Current wt Protein g/k-1.2 Protein Calculated 68-82 Fluid: ml 1700-2040ml (1ml/ckal) Nutritional Problem 1. Problem Problem altered nutrition related lab values Etiology hx of DM Signs/Symptoms: glucose 168 Intervention/Recommendation Comments 1. Continue monitor glucose and accucheck. If blood sugar continue high, consider adding CCHO-60gm diet. 2. Monitor PO intake, wt, labs and skin integrity 3. F/U as high risk in 2-3 days, 06/10-06/11 Expected Outcomes/Goals Expected Outcomes/Goals 1. PO intake to meet at least 75% of nutritional needs. 2. Wt stability, skin to remain intact, labs to approach WNL.
== END 2017-06-10 17:15 | DRG 641 ==
LOC: ER 11:05 → MSI 15:00
PROVIDERS: ADMIT Internal Medicine; ATTEND Internal Medicine
PROC: 3E0234Z Introduction of Serum, Toxoid and Vaccine into Muscle, Percutaneous Approach (ICD-10-PCS; principal; 2017-06-07)
DX: E86.0 Dehydration (principal); G20 Parkinson's disease; R62.7 Adult failure to thrive; I10 Essential (primary) hypertension; N40.0 Benign prostatic hyperplasia without lower urinary tract symptoms; I25.10 Atherosclerotic heart disease of native coronary artery without angina pectoris; Z23 Encounter for immunization; Z82.49 Family history of ischemic heart disease and other diseases of the circulatory system; Z91.81 History of falling
CPT/HCPCS: 36415-UA; 71045-TC; 80048-TC; 80053-TC; 81001-TC; 82550-TC; 82948-90; 83605; 84484-TC; 85007-TC; 85025-TC; 85027-TC; 85610-TC; 85730-TC; 93005; 97530; J9999; X3904; Z7610